=== PATIENT | female | born 2000 | race Caucasian/White ===

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

== ENCOUNTER 2021-07-05 11:27 | Emergency (ER) | payer OTHER ==
[2021-07-05 11:33] VITALS: BMI 26.6
[2021-07-05] MEDS ORDERED: ACETAMINOPHEN 500 MG TABLET (FP) PO ONE (12:08)
[2021-07-05] MEDS ORDERED: SODIUM CHLORIDE 1,000 ML IV STA (12:08)
[2021-07-05 13:31] LABS: BASO % 0.3 % (0-2.0); EOS % 0.1 % (0-4.5); HEMATOCRIT 35.6 % (32.4-45.2); HEMOGLOBIN 12.1 GM/dL (10.7-15.3); MCH 29.8 pg (25.7-33.7); MCHC 33.9 g/dl (32.0-36.0); MEAN CELL VOLUME 88.1 fl (80-96); MEAN PLT VOLUME 8.3 fl (7.5-11.1); MONO % 5.5 % (3.8-10.2); NEUT % 87.1 % (42.8-82.8); PLATELET COUNT 226 10^3/uL (134-434); RBC 4.04 M/mm3 (3.60-5.2); RDW 13.3 % (11.6-15.6)
[2021-07-05 13:51] LABS: BLOOD UREA NITROGEN 4.9 mg/dL (7-18)
[2021-07-05 13:54] LABS: CREATININE 0.7 mg/dL (0.55-1.3)
[2021-07-05 13:56] LABS: BILIRUBIN,TOTAL 0.4 mg/dL (0.2-1); TOT PROT 7.7 g/dl (6.4-8.2)
[2021-07-05 15:19] LABS: URINE APPEARANCE CLEAR; URINE BILIRUBIN NEGATIVE (NEGATIVE); URINE COLOR YELLOW; URINE GLUCOSE (UA) NEGATIVE (NEGATIVE); URINE KETONE TRACE (NEGATIVE); URINE LEUK ESTERASE NEGATIVE (NEGATIVE); URINE NITRITE NEGATIVE (NEGATIVE); URINE PROTEIN NEGATIVE (NEGATIVE); URINE UROBILINOGEN 0.2 mg/dL (0.2-1.0)
[2021-07-05 15:21] LABS: HCG,QUALITATIVE URINE Negative
[2021-07-05 16:22] VITALS: BP 117/89; PULSE 79; TEMP 98.5
== END 2021-07-05 16:56 | disposition home or self-care (01) ==
LOC: JER 11:27
PROC: 3E0337Z Introduction of Electrolytic and Water Balance Substance into Peripheral Vein, Percutaneous Approach (ICD-10-PCS; principal; 2021-07-05)
DX: B34.9 Viral infection, unspecified (principal)
CPT/HCPCS: 36415; 71046-TC-FY; 80053; 81003; 84703; 85025; 87086; 87880; 99284-25; C9803; U0003; U0005